=== PATIENT | male | born 1985 | race African-American/Black ===

== ENCOUNTER 2023-07-15 07:43 | Emergency (ER) | payer OTHER ==
[~2023-07-15] VITALS: Ht 195.6 cm; Wt 94.1 kg
[2023-07-15] MEDS ORDERED: SERT-158 PO (07:48)
[2023-07-15 07:53] VITALS: TEMP 97.8
[2023-07-15] MEDS: MECLIZINE HCL 25 MG TABLET PO ONE (08:09)
[2023-07-15] MEDS: ONDANSETRON HCL 4 MG TABLET PO ONE (08:09)
[2023-07-15] MEDS: ACETAMINOPHEN 500 MG TABLET PO ONE (08:10)
[2023-07-15 08:14] LABS: BASOPHILS % (AUTO) 0.8 % (0.0-2.0); EOSINOPHILS % (AUTO) 4.3 % (1.0-6.0); HEMATOCRIT 48.5 % (41-53); HEMOGLOBIN 16.3 g/dL (13.5-17.5); LYMPHOCYTES # (AUTO) 1.1 K/uL (1.0-4.8); LYMPHOCYTES % (AUTO) 31.7 % (22.0-44.0); MEAN CORPUSCULAR HGB CONC 33.6 G/dL (31.0-37.0); MEAN CORPUSCULAR VOLUME 92 fL (80-100); MONOCYTES # (AUTO) 0.3 K/uL (0.1-1.0); MONOCYTES % (AUTO) 9.6 % (2.0-9.0); NEUTROPHILS # (AUTO) 1.9 K/uL (1.8-7.7); NEUTROPHILS % (AUTO) 53.6 % (40.0-70.0); PLATELET COUNT (AUTO) 180 K/uL (150-450); RED BLOOD CELL COUNT(AUTO) 5.26 MIL/uL (4.50-5.90); RED CELL DISTRIBUTION WIDTH 13.4 % (11.5-14.5); WHITE BLOOD COUNT (AUTO) 3.5 K/uL (4.5-11.0)
[2023-07-15 08:22] LABS: ANION GAP 7 mmol/L (8-16); CALCIUM, TOTAL 9.6 mg/dL (8.8-10.5); CARBON DIOXIDE 31 mmol/L (22-29); CHLORIDE 102 mmol/L (98-107); GLOMERULAR FILTR. RATE CALC > 60 mL/min (>60); GLUCOSE,RANDOM 98 mg/dL (70-110); POTASSIUM 3.7 mmol/L (3.5-5.1); SODIUM SERUM 140 mmol/L (136-145); UREA NITROGEN, BLOOD 13 mg/dL (7-18)
[2023-07-15 08:27] LABS: ALANINE AMINOTRANSFERASE 21 U/L (12-78); ALBUMIN 4.5 g/dL (3.4-5.0); ALKALINE PHOSPHATASE 59 U/L (46-116); ASPARTATE AMINOTRANSFERASE 20 U/L (15-37); BILIRUBIN,TOTAL 0.8 mg/dL (0.1-1.0); TOTAL PROTEIN, SERUM 7.6 g/dL (6.4-8.2)
[2023-07-15] MEDS ORDERED: ONDA-104 PO (08:59)
[2023-07-15] MEDS ORDERED: MECL-134 PO (08:59)
[2023-07-15] MEDS ORDERED: ACET-66 PO (08:59)
[2023-07-15 09:09] VITALS: BP 115/72; PULSE 69; RESP 18
== END 2023-07-15 09:10 | disposition home or self-care (01) ==
LOC: EMS 07:44
DX: R42 Dizziness and giddiness (principal); F41.1 Generalized anxiety disorder; F32.A Depression, unspecified
CPT/HCPCS: 99284; 80053; 85025; 36415; 93005; Q0162